=== PATIENT | male | born 1955 | race Caucasian/White ===

== ENCOUNTER 2016-10-02 17:45 | Emergency (ER) | payer OTHER ==
[~2016-10-02] VITALS: Ht 172.7 cm; Wt 72.7 kg
[2016-10-02 17:52] VITALS: BP 120/84; PULSE 58; RESP 20; O2SAT 100
--- NOTE | 2016-10-02 19:48 | ED.REPORT ---
HPI-Extremity Problem Lower Date of Service Oct 02, 2016 ED Provider: Doc,Ed MD History of Present Illness: 61yo male with R calf swelling x 1 day. he had a strain in posterior calf 2 weeks ago, felt "pop" and surmised itv was a strain and treated symptomatically including massage. Yesterday he few in airplane from [place] to [place], today he noticed increased swelling and tightness in his calf. he denies any CP, SOB, fever. Nursing Notes Stated Complaint: LEG SWELLING Chief Complaint: Extremity Trauma Nursing Notes Reviewed: Yes Allergies: Coded Allergies: Penicillins (Verified Allergy, Mild, 10/02/16) General Time Seen by MD: 19:47 Chief Complaint Leg injury right Hx Obtained From: Patient Arrived By: Walk-in Onset Occurred: Yesterday Symptom Duration: Since onset Context: Occurred at: Home injury Location: : Leg right Severity: Current: Mild Severity: Maximum: Mild Associated with: Reports: "Pop" felt or heard (2 weeks ago), Denies: Chest pain, Difficulty breathing, Fever, Joint swelling Pertinent Negative: Pt denies other symptoms Pertinent Negative: Exacerbated by nothing, Relieved by nothing Recent Healthcare: No recent doctor visit Similar Sx Previous: No Risk-Extremity Prob Lower Risk Notes: flew in aircraft yesterday. Well's Criteria for DVT Calf swelling >3cm (1) Well's DVT Score: 1-2 pts (mod risk 33%) Past Medical History Past Medical History hyperlipidemia Smoking History Never Smoker Social History Alcohol Use: Denies alcohol use Drug Use: Denies drug use Ambulatory Status Independent Review of Systems Constitutional: Denies: Chills, Fever Musculoskeletal: Reports: Extremity pain, Extremity swelling Skin: Denies Rash Complete sys rev & neg: except as marked. Respiratory: Denies: Shortness of breath, Wheezing Cardiovascular: Denies: Chest pain GI: Denies: Abdominal pain Physical Exam Initial Vital Signs Vital Signs (First) Date Time Temp Pulse Resp B/P Pulse Ox O2 Delivery O2 Flow Rate FiO2 10/02/16 17:52 36.2 58 20 120/84 100 Room Air Initial VS: Reviewed, Vital signs normal Right Knee: Negative: Swelling present..., Tenderness present... Right Leg / Calf: Positive: R calf > L calf, Swelling present... (Moderate), Tenderness present... (Mild), Negative: Ecchymosis present, Erythema present, Reji's sign positive, Neuro deficit present, Pulses distal decreased, Warmth present R mid-calf circumference= 38.5cm L mid-calf circumference = 35.0cm General/Constitutional: Awake, Alert, No acute distress Respiratory / Chest: Breath sounds NL, Breath sounds = bilat, No respiratory distress Cardiovascular: Heart rate NL, Regular rhythm, Heart sounds NL Interpretation & Diagnostics Lab Results Interpretation Result Diagram: 10/02/16 2030 10/02/16 2030 Test 10/02/16 20:30 White Blood Count 6.6th/mm3 (3.8-10.1) Red Blood Count 4.95mil/mm3 (4.40-5.80) Hemoglobin 14.9g/dL (13.8-17.2) Hematocrit 45.7% (41.0-50.0) Mean Corpuscular Volume 92.3fL (81-100) Mean Corpuscular Hemoglobin 30.1pg (27.0-35.0) Mean Corpuscular Hemoglobin Concent 32.6% (32.0-37.0) Red Cell Distribution Width 13.2% (12.3-15.4) Platelet Count 181bil/L (150-400) Neutrophils (%) (Auto) 56.6% (40-74) Lymphocytes (%) (Auto) 28.4% (14-46) Monocytes (%) (Auto) 10.6% (4-12) Eosinophils (%) (Auto) 3.9% (0-5) Basophils (%) (Auto) 0.3% (0-3) Prothrombin Time 10.0sec (8.1-12.5) Prothromb Time International Ratio 0.94ratio Sodium Level 144mEq/L (134-144) Potassium Level 4.6mEq/L (3.5-5.2) Chloride Level 107mEq/L (97-108) Carbon Dioxide Level 25mmol/L (18-29) Blood Urea Nitrogen 21mg/dL (6-24) Creatinine 0.90mg/dL (0.76-1.27) Estimat Glomerular Filtration Rate 92mL/min (>59) Glucose Level 97mg/dL (60-99) Calcium Level 9.5mg/dL (8.5-10.1) Total Bilirubin 0.2mg/dL (0.0-1.2) Aspartate Amino Transf (AST/SGOT) 23U/L (0-50) Alanine Aminotransferase (ALT/SGPT) 24U/L (0-44) Alkaline Phosphatase 75U/L (25-160) Total Protein 6.9g/dL (6.4-8.4) Albumin 4.1g/dL (3.4-5.0) Hold Goode Top Tube Received (Received) Re-Eval/Medical Decision Med Decision/Clinical Course Pt. has risk factors for DVT given symptoms and recent aircraft flight. Care transferred to Dr. Rangel at shift change. This patient was initially evaluated by PAIGE Colón. History is consistent with plantars tendon rupture but there was also concern for DVT. Ultrasound is negative for DVT. Patient was informed and will be discharged home without restrictions. Discharge & Departure Shift Change Sign-Out Patient Care Transferred: Yes Discussed Complaint(s): Yes Laboratory Evaluation: Ordered, not yet done Imaging Studies: Ordered, not yet done Impression: Primary Impression: Edema of right lower extremity Additional Impression: Injury of plantaris muscle or tendon Encounter type: initial encounter Laterality: right Qualified Code: S89.91XA - Unspecified injury of right lower leg, initial encounter Disposition: Home Discharge Condition All VS Reviewed: Yes Condition: Stable Patient Instructions: Muscle Strain (DC) Additional Instructions: No evidence of abnormality on the ultrasound, specifically no deep vein thrombosis (DVT). It is likely that you injured the plantaris tendon previously in the swelling as a result of that. Ibuprofen as needed. Follow- up with your primary doctor as needed. No restrictions. Referrals: OTHER,PHYSICIAN (PCP) EDSupervising Provider for APC: Lauri Rangel MD, Christopher R [facility] Oct 02, 2016 19:47 Lauri Rangel MD Oct 02, 2016 22:04
[2016-10-02 20:44] LABS: BASOPHILS % (AUTO) 0.3 % (0-3); EOSINOPHILS % (AUTO) 3.9 % (0-5); MONOCYTES % (AUTO) 10.6 % (4-12); Mean Corpuscular Hemoglobin 30.1 pg (27.0-35.0); Mean Corpuscular Volume 92.3 fL (81-100); NEUTROPHILS % (AUTO) 56.6 % (40-74); Platelet Count 181 bil/L (150-400)
[2016-10-02 21:03] LABS: INR 0.94 ratio
--- NOTE | 2016-10-02 22:03 | DRSVH ---
PROCEDURE: US VEINOUS LEG DUPLEX UNILATERAL, RIGHT INDICATIONS: Right leg pain and swelling. TECHNIQUE: Real-time imaging, as well as color and pulse Doppler interrogation, were performed of the lower extr emity deep veins from the inguinal ligament to the popliteal fossa. COMPARISON: None. FINDINGS: The deep veins are normally compressible, and free of intraluminal thrombus. Color and pu lse Doppler demonstrate normal phasic intraluminal flow. There is normal augmentation response to di stal compression maneuver. IMPRESSION: 1. No evidence of deep venous thrombosis in the right lower extremity. Dictated by: Kevyn Mcdonald M.D. on 10/02/2016 at 22:00 Approved by: Kevyn Mcdonald M.D. on 10/02/2016 at 22:01
[2016-10-02 22:23] VITALS: BP 118/79; PULSE 62; RESP 20; O2SAT 100
== END 2016-10-02 22:21 | disposition home or self-care (01) ==
LOC: SED 17:45
DX: R60.0 Localized edema (principal); S96.891A Other specified injury of other specified muscles and tendons at ankle and foot level, right foot, initial encounter; X50.1XXA Overexertion from prolonged static or awkward postures, initial encounter; Y93.9 Activity, unspecified; Y92.009 Unspecified place in unspecified non-institutional (private) residence as the place of occurrence of the external cause; Y99.9 Unspecified external cause status; E78.5 Hyperlipidemia, unspecified; Z88.0 Allergy status to penicillin